=== PATIENT | female | born 1970 ===

== ENCOUNTER 2020-04-21 10:20 | Emergency (ER) | payer OTHER ==
[~2020-04-21] VITALS: Ht 170.2 cm; Wt 78.9 kg
[2020-04-21] MEDS ORDERED: ZITHROMAX500 MG PO (13:03)
[2020-04-21] MEDS ORDERED: FLUCONAZOLE150 MG PO (13:09)
== END 2020-04-21 13:14 | disposition home or self-care (01) ==
LOC: ER 10:20
DX: B34.9 Viral infection, unspecified (principal); B96.0 Mycoplasma pneumoniae [M. pneumoniae] as the cause of diseases classified elsewhere